=== PATIENT | female | born 1985 | race Caucasian/White ===

== ENCOUNTER 2019-10-04 07:30 | Inpatient (IN) | payer OTHER ==
[2019-10-10] MEDS: LACTATED RINGERS 1,000 ML IV SCH ×5 (04:30→18:55)
[2019-10-10] MEDS ORDERED: LACTATED RINGERS 1,000 ML IV ONE (04:30)
[2019-10-10] MEDS ORDERED: BUTORPHANOL 2 MG/1 ML INJ IV ONE ×2 (04:49→09:00)
[2019-10-10 04:58] LABS: Hematocrit 35.7 % (30.3-42.9); Hemoglobin 12.6 gm/dl (10.1-14.3); Mean Corpuscular HGB Conc 35 % (30-34); Mean Corpuscular Volume 89 fl (79-97); Platelet Count 200 K/mm3 (140-440); Red Blood Count 3.99 M/mm3 (3.65-5.03); Red Cell Distribution Width 13.6 % (13.2-15.2)
[2019-10-10] MEDS ORDERED: ceFAZolin/Water 2 GM/20 ML 2 GM/20 ML SYRINGE IV NR (06:00)
[2019-10-10] MEDS ORDERED: OXYTOCIN 20 UNIT/1000ML DRIP 20 UNITS/1,000 ML BAG IV SCH ×2 (06:00→12:00)
[2019-10-10] MEDS ORDERED: FAMOTIDINE 20 MG/2 ML INJ IV ONE (06:02)
[2019-10-10] MEDS ORDERED: METOCLOPRAMIDE 10 MG/2 ML INJ IV ONE (06:02)
[2019-10-10] MEDS ORDERED: BICITRA ORAL LIQD 30ML PO ONE (06:02)
--- NOTE | 2019-10-10 08:15 | Anesthesia Consultation ---
Anesthesia Consult and Med Hx Date of service: 10/10/19 - Airway Anesthetic Teeth Evaluation: Good ROM Head & Neck: Adequate Mental/Hyoid Distance: Adequate Mallampati Class: Class II Intubation Access Assessment: Good - Pulmonary Exam CTA: Yes - Cardiac Exam Cardiac Exam: RRR - Pre-Operative Health Status ASA Pre-Surgery Classification: ASA2 Proposed Anesthetic Plan: Spinal - Pulmonary Hx Asthma: No - Cardiovascular System Hx Hypertension: No - Central Nervous System Hx Seizures: No Hx Psychiatric Problems: No - Endocrine Hx Renal Disease: No Hx Hypothyroidism: No Hx Hyperthyroidism: No - Hematic Hx Anemia: No Hx Sickle Cell Disease: No - Other Systems Hx Alcohol Use: No
--- NOTE | 2019-10-10 08:17 | Anesthesia Day of Surgery ---
Anesthesia Day of Surgery - Day of Surgery Patient Examined: Yes Patient H&P Reviewed: Yes Patient is NPO: Yes
[2019-10-10] MEDS ORDERED: ePHEDrine SULFATE 50 MG/1 ML INJ ONE (08:46)
[2019-10-10] MEDS ORDERED: ePHEDrine SULFATE 50 MG/1 ML INJ IV STA (08:46)
[2019-10-10] MEDS ORDERED: DEXMEDETOMIDINE 200 MCG/2 ML VIAL IV ONE (08:57)
[2019-10-10] MEDS ORDERED: PHENYLEPHRINE/NS 1,000 MCG/10 ML SYRINGE (OR USE) IV ONE (08:57)
[2019-10-10] MEDS ORDERED: ONDANSETRON 4 MG/2 ML INJ ONE (08:57)
[2019-10-10] MEDS ORDERED: NALOXONE 0.4 MG/1 ML INJ IV PRN ×2 (09:00→11:13)
[2019-10-10] MEDS ORDERED: MORPHINE 4 MG/1 ML INJ IV PRN (09:00)
[2019-10-10] MEDS ORDERED: PROMETHAZINE 25 MG RECT SUPP PR PRN (09:00)
[2019-10-10] MEDS ORDERED: ONDANSETRON 4 MG/2 ML INJ IV PRN ×2 (09:00→11:15)
[2019-10-10] MEDS ORDERED: PROMETHAZINE 25 MG TAB PO PRN (09:00)
[2019-10-10] MEDS ORDERED: HYDROmorphone 1 MG/1 ML INJ IV PRN (09:00)
[2019-10-10] MEDS ORDERED: SODIUM CHLORIDE 0.9% IRR 1,500 ML BOTTLE IR ONE (10:08)
[2019-10-10] MEDS ORDERED: WATER FOR IRRIG STERILE 1,500 ML BOTTLE IR ONE (10:08)
[2019-10-10] MEDS ORDERED: dexAMETHasone 20 MG/5 ML VIAL ONE (10:31)
[2019-10-10] MEDS ORDERED: KETOROLAC 30 MG/1 ML INJ ONE (10:31)
[2019-10-10] MEDS ORDERED: PHENYLEPHRINE 10 MG/1 ML INJ SDV ONE (10:31)
[2019-10-10] MEDS ORDERED: LIDOCAINE 2%/EPINEPHRINE 1:200,000 VIAL (20 ML) INFILTRATI ONE (10:31)
[2019-10-10] MEDS ORDERED: OXYTOCIN 10 UNIT/1 ML INJ ONE (10:31)
[2019-10-10] MEDS ORDERED: LANOLIN/ZINC/DIMETHICONE (LANSINOH) 7 GM TP PRN (11:13)
[2019-10-10] MEDS ORDERED: WITCH HAZEL/ GLYCERIN PAD TP PRN (11:13)
[2019-10-10] MEDS ORDERED: MAGNESIUM HYDROXIDE (MOM) ORAL LIQD UDC PO PRN (11:15)
[2019-10-10] MEDS ORDERED: SENNOSIDES 8.6 MG TAB PO PRN (11:15)
[2019-10-10] MEDS ORDERED: SIMETHICONE 80 MG CHEW TAB PO PRN (11:15)
--- NOTE | 2019-10-10 11:19 | Post Anesthesia Evaluation ---
- Post Anesthesia Evaluation Patient Participated: Yes Airway Patent: Yes Stable Respiratory Function: Yes Nausea/Vomiting: No Temp > 96.8F: Yes Pain Manageable: Yes Adequeate Hydration: Yes Anesthesia Complications: No Block Receding Appropriately: Yes Patient on Ventilator: No
[2019-10-10] MEDS: KETOROLAC 30 MG/1 ML INJ IV PRN ×2 (14:12→22:55)
--- NOTE | 2019-10-10 17:16 | Procedure Note ---
OB Delivery Note - Delivery Date of Delivery: 10/10/19 Surgeon: CHERRIE MAY Estimated blood loss: other (800 cc) - Section Preop diagnosis: repeat Postop diagnosis: same section procedure: repeat low transverse Disposition: PACU Complications: none Narrative: Indication:PT at 40 weeks with H/O 2 prior c-sections is here today for Repeat LTCS. Findings: Normal uterus, tubes and ovaries. Clear fluid. No nuchal cord. No significant intra-abdominal scarring. Mild subcutaneous scarring. Procedure: Patient taken to the operating room and prepped and draped in the usual fashion. Pfannenstiel skin incision was made and carried down to the underlying fascia. Fascia was incised and the incision was extended bilaterally. Rectus fascia dissected off the rectus muscle both superiorly and inferiorly. Peritoneum identified tented up and entered. Peritoneal incision extended superiorly and inferiorly with good visualization of the bladder. Bladder blade was placed. Uterine incision was made and the incision was extended bilaterally. The baby was delivered from in the typical vertex fashion. Baby bulb suction at the incision site and again after delivery. Cord was delayed clamped and cut and handed off to waiting team. The placenta was delivered spontaneously. The uterus was exteriorized and cleared of all clots and debris. Uterine incision closed with 0 Vicryl in a running locked fashion followed by a second imbricating layer of 0 Vicryl. Good hemostasis was noted after a couple additional [id number] stitches. Her urine was clear. Uterus tubes and ovaries return to the abdominal cavity. Gutters were cleared of all clots and debris and the pelvis was well irrigated. Good hemostasis noted. Interceed placed over the uterine incision and over the lower uterine segment in the midline. Attention was turned to the rectus fascia which was reapproximated with 0 Vicryl in a running fashion. Subcutaneous tissues was irrigated and reapproximated with 2-0 Vicryl in a running fashion. Skin was closed with 4-0 Vicryl in a subcuticular fashion followed by Dermabond. The procedure was concluded at this point and the patient tolerated the procedure well. All instrument and lap counts were correct. - A at 1 minute: 8 at 5 minutes: 9 Gender: Female
[2019-10-11] MEDS: oxyCODONE /ACETAMINOPHEN 5-325MG TAB PO PRN ×3 (06:00→22:31)
[2019-10-11 07:12] LABS: Hematocrit 28.7 % (30.3-42.9); Hemoglobin 9.8 gm/dl (10.1-14.3)
[2019-10-11] MEDS: IBUPROFEN 800 MG TAB PO PRN ×2 (10:43→18:42)
--- NOTE | 2019-10-11 12:11 | Progress Note ---
Assessment and Plan A: POD #1 Asymptomatic Anemia P: Follow Routine Orders Continue FeSO4 as ordered Subjective - Subjective Date of service: 10/11/19 Patient reports: appetite normal, voiding normally, pain well controlled, flatus, ambulating normally [place]: doing well, bottle feeding Objective - Vital Signs Latest vital signs: Vital Signs Temp Pulse Resp BP BP Pulse Ox 10/11/19 08:18 97.9 F 79 16 89/45 96 10/11/19 06:00 18 10/11/19 04:45 98.2 F 79 18 99/58 97 10/11/19 00:15 98.3 F 64 18 105/58 96 10/10/19 22:55 18 10/10/19 21:56 98.1 F 92 H 18 91/55 94 10/10/19 16:55 97.6 F 65 18 97/56 97 10/10/19 13:15 98.2 F 56 L 16 104/56 96 10/10/19 12:36 98.1 F 10/10/19 12:30 66 14 96/56 97 10/10/19 12:15 97.9 F Intake and Output 10/10/19 10/11/19 10/11/19 22:59 06:59 14:59 Intake Total 1720 120 Output Total 1200 2100 Balance 520 -1980 Intake: IV 1000 Lactated Ringers 1,000 ml 1000 @ 2250 mls/hr IV PREOP [facility] Rx#:[id number] Oral 120 120 Intake, Free Water 600 Output: Urine 1200 2100 Indwelling Catheter 1200 1800 Void 300 Other: Total, Intake Amount 120 120 Total, Output Amount 300 300 - Exam Breasts: Present: normal Cardiovascular: Present: Regular rate Lungs: Present: Clear to auscultation, Normal air movement Abdomen: Present: normal appearance, soft, normal bowel sounds Uterus: Present: normal, firm, fundal height below umbilicus Extremities: Present: normal Incision: Present: normal, dry, dressed - Labs Labs: Abnormal lab results 10/11/19 Range/Units 06:30 Hgb 9.8 L (10.1-14.3) gm/dl Hct 28.7 L D (30.3-42.9) %
[2019-10-11] MEDS: FERROUS SULFATE 325 MG TAB PO SCH ×2 (18:42→22:31)
[2019-10-12] MEDS: oxyCODONE /ACETAMINOPHEN 5-325MG TAB PO PRN (03:57)
[2019-10-12] MEDS: FERROUS SULFATE 325 MG TAB PO SCH (10:22)
--- NOTE | 2019-10-12 11:14 | Progress Note ---
Assessment and Plan - Patient Problems (1) S/P repeat low transverse Current Visit: Yes Status: Acute Plan to address problem: POD 2 - stable Discharge to home today Follow up at [facility] as needed or in 1 week for incision check (2) Single live Current Visit: Yes Status: Acute (3) Anemia due to blood loss, acute Current Visit: Yes Status: Acute Plan to address problem: Asymptomatic Continue iron therapy (4) Hypotension Current Visit: Yes Status: Acute Qualifiers: Trimester: third trimester Plan to address problem: Asymptomatic Encouraged PO hydration and slow position changes Subjective - Subjective Date of service: 10/12/19 Principal diagnosis: POPD #2; s/p Repeat LTCS Interval history: see OB Delivery Procedure Note and PP/CH[facility]AG[facility] Progress Note Patient reports: appetite normal, voiding normally, pain well controlled, flatus, ambulating normally, no dizzy ambulation, no bowel movement [place]: doing well, bottle feeding Objective - Vital Signs Latest vital signs: Vital Signs Temp Pulse Resp BP BP Pulse Ox 10/12/19 03:57 18 10/12/19 00:50 97.9 F 74 18 89/47 96 10/11/19 22:31 18 10/11/19 16:15 98.2 F 80 15 96/58 97 10/11/19 12:43 98.4 F 86 15 103/58 97 Intake and Output 10/11/19 10/12/19 10/12/19 23:59 07:59 15:59 Intake Total 1080 240 Balance 1080 240 Intake: Oral 1080 240 Other: Total, Intake Amount 120 120 # Voids Void 3 1 # Bowel Movements 0 - Exam Cardiovascular: Present: Regular rate Lungs: Present: Clear to auscultation Abdomen: Present: normal appearance, soft Vulva: both: normal Uterus: Present: normal, firm, fundal height below umbilicus Extremities: Present: normal Incision: Present: normal, dry, intact Comments: scant lochia
--- NOTE | 2019-10-12 11:17 | Discharge Summary ---
Providers - Providers Date of Admission: 10/10/19 03:37 Date of discharge: 10/12/19 Attending physician: MAXIMILIANO AHNLEY MD Primary care physician: MAXIMILIANO HANLEY MD Hospitalization Reason for admission: section, IUP at term Delivery: Procedure: repeat low transverse Episiotomy: none Laceration: none Incision: normal, dry, intact Other procedures: none complications: none Discharge diagnosis: IUP at term delivered baby: female Hospital course: Uncomplicated Condition at discharge: Stable Disposition: PA-01 TO HOME OR SELFCARE - Discharge Diagnoses (1) S/P repeat low transverse Status: Acute (2) Single live Status: Acute (3) Anemia due to blood loss, acute Status: Acute Comment: Asymptomatic Continue ferrous sulfate 325mg by mouth twice daily Eat iron-rich foods (4) Hypotension Status: Acute Qualifiers: Trimester: third trimester Comment: Asymptomatic Drink at least 1 liter of water daily Change positions slowly Plan - Discharge Medications Prescriptions: Ferrous Sulfate [Feosol 325 MG tab] 325 mg PO BID #60 tablet Ibuprofen [Motrin 800 MG tab] 800 mg PO Q6H PRN #30 tablet PRN Reason: Pain, Mild (1-3) oxyCODONE /ACETAMINOPHEN [Percocet 5/325 mg] 1 tab PO Q6H PRN #30 tablet PRN Reason: Pain, Moderate (4-6) - Provider Discharge Summary Activity: routine, no sex for 6 weeks, no heavy lifting 4 weeks, no strenuous exercise Diet: routine Instructions: routine Additional instructions: [] Smoking cessation referral if applicable(refer to patient education folder for contact #) [] Refer to [facility] Booklet Call your doctor immediately for: * Fever > 100.5 * Heavy vaginal bleeding ( >1 pad per hour) * Severe persistent headache * Shortness of breath * Reddened, hot, painful area to leg or breast * Drainage or odor from incision. * Keep incision clean and dry at all times and follow doctor's instructions regarding bathing/showering - Follow up plan Follow up: MAXIMILIANO HANLEY MD [Primary Care Provider] - 7 Days (Follow up at [facility] as needed or in 1 week for incision check)
[2019-10-12 14:28] VITALS: BP 117/76
== END 2019-10-12 16:38 | disposition home or self-care (01) | DRG 787 ==
LOC: APU 10-10 03:37 → OB 10-10 13:35
PROVIDERS: ADMIT Obstetrics & Gynecology; ATTEND Obstetrics & Gynecology
PROC: 10D00Z1 Extraction of Products of Conception, Low, Open Approach (ICD-10-PCS; principal; 2019-10-10)
DX: O34.211 Maternal care for low transverse scar from previous cesarean delivery (principal); D62 Acute posthemorrhagic anemia; O99.43 Diseases of the circulatory system complicating the puerperium; Z3A.40 40 weeks gestation of pregnancy; Z37.0 Single live birth; O90.81 Anemia of the puerperium; I95.9 Hypotension, unspecified
CPT/HCPCS: 36415; 85014; 85018; 85027; 86592; 86850; 86900; 86901; G0378; C1765; J0595; J0690; J1100; J1885; J2370; J2405; J2590; J2765; J3490; J7120